=== PATIENT | female | born 1955 ===

== ENCOUNTER 2023-01-30 08:55 | Outpatient (AMB) | payer MEDICARE, SELFPAY ==
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
[2023-01-30 09:08] VITALS: BP 132/82; PULSE 89; RESP 14; O2SAT 97; BMI 23.1
== END 2023-01-30 10:18 | disposition home or self-care (01) ==
PROVIDERS: PCP Internal Medicine; Visit Provider Internal Medicine
DX: M79.671 Pain in right foot (principal); G89.29 Other chronic pain; M53.3 Sacrococcygeal disorders, not elsewhere classified
CPT/HCPCS: 64450; 76942; 99204

== ENCOUNTER → 2023-01-30 08:55 | Outpatient (BNVA) | payer MEDICARE, SELFPAY | PROVIDERS: PCP Internal Medicine; Visit Provider Internal Medicine | DX: M79.672 Pain in left foot (principal); M53.3 Sacrococcygeal disorders, not elsewhere classified; G89.29 Other chronic pain | CPT/HCPCS: 64450 ==

== ENCOUNTER 2023-03-13 10:15 | Outpatient (AMB) | payer MEDICARE, SELFPAY ==
--- NOTE | 2023-03-13 10:16 | MHC.OFFVIS ---
Intake Vital Signs 03/13/23 10:18 Height 5 ft 6 in Weight 144 lb BMI 23.2 Blood Pressure Location Lt brachial Position Sitting Respiration 12 Pulse 87 Pulse Source Pulse Oximeter Intake Visit Reasons: MRI review/SIJ inj denial/confirmed Allergies novacaine Adverse Reaction (Severe, Uncoded 01/30/23 09:10) tachycardia HPI MRI review/SIJ inj denial/confirmed HPI Details 67-year-old female who presents today to the office for a review of MRI scan result. Her SI joint injection was declined by her insurance. She has difficulty doing physical therapy and home exercises due to pain. She had an MRI scan completed at [facility]. She reports shooting mid-back pain that radiates to the sides. She takes gabapentin every other day, which helps to take the edge off. She tried marijuana but did not tolerate it well. She is not taking meloxicam. The patient reports % relief following the procedure. She states that her foot pain improved for about three days, but then it started worsening. She had mild numbness in her buttock two days after the procedure, which eventually resolved. Past procedure: 01/30/2023: Left posterior tibial nerve block, ultrasound guided: % relief for three days. [facility] Medical History (Updated 03/14/23 @ 11:55 by Blu Andre MD) Chronic pain in left foot Chronic bilateral low back pain without sciatica Review of Systems Const All systems reviewed & are unremarkable except as noted in HPI and below Physical Exam Vital Signs: Last Vital Signs Pulse 87 03/13/23 10:18 Resp 12 03/13/23 10:18 BMI result Body Mass Index 23.2 General: Appears afebrile. Alert and oriented. Mood and affect appropriate. Follows and participates in conversation appropriately. Respiratory effort is unlabored. Able to transition from sit to stand unassisted. Ambulates with bilaterally normal heel strike and toe off. Results Reviewed Results Reviewed: 05/21/22: MRI scan LUMBAR SPINE WO CONTRAST. Assessment & Plan Assessment & Plan (1) Sacroiliac joint dysfunction: Code(s): M53.3 - Sacrococcygeal disorders, not elsewhere classified (2) Chronic pain in left foot: Comment: history of Sahu neuroma resection Code(s): M79.672 - Pain in left foot; G89.29 - Other chronic pain (3) Vertebrogenic low back pain: Code(s): M54.51 - Vertebrogenic low back pain Plan I discussed the BVN ablation with her for L5-S1 levels, based on modic changes on MRI and pain and exacerbation with lumbar flexion indicating a discogenic source. I still need to review her MRI images so she will drop off the disk when it is convenient for her. I will prescribe her a 1 time dose of tramadol 25-50 mg 30 tablets to last her until we can get her scheduled for the procedure. Given her excellent diagnostic response to posterior tibial nerve block for neuropathic foot pain. We discussed a trial of temporary posterior tibial nerve stimulation to follow after the intercept procedure. I discussed post procedures in detail, including the specifics of the procedures as well as risks and benefits. Scribed for Dr. Andre by Dale Roach, medical office assistant, on 03/13/2023. I, Dr. Andre, have personally reviewed and agree with the information entered by the scribe. Medications: New tramadol 50 mg PO DAILY 30 tabs 0RF Coding Level of Care Code Est Pt Level 4 (71235) Diagnoses Sacroiliac joint dysfunction M53.3 Chronic pain in left foot M79.672; G89.29 Vertebrogenic low back pain M54.51
[2023-03-13 10:18] VITALS: PULSE 87; RESP 12; BMI 23.2
== END 2023-03-13 10:57 | disposition home or self-care (01) ==
PROVIDERS: PCP Internal Medicine; Visit Provider Internal Medicine
DX: G89.29 Other chronic pain (principal); M53.3 Sacrococcygeal disorders, not elsewhere classified; M79.672 Pain in left foot; M54.51 Vertebrogenic low back pain
CPT/HCPCS: 99214

== ENCOUNTER → 2023-03-13 10:15 | Outpatient (BNVA) | payer MEDICARE, SELFPAY | PROVIDERS: PCP Internal Medicine; Visit Provider Internal Medicine | DX: M53.3 Sacrococcygeal disorders, not elsewhere classified (principal); M79.672 Pain in left foot; M54.51 Vertebrogenic low back pain; G89.29 Other chronic pain | CPT/HCPCS: 99212 ==

== ENCOUNTER 2023-06-30 08:57 | Outpatient (AMB) | payer MEDICARE, SELFPAY ==
--- NOTE | 2023-06-30 08:57 | MHC.OFFVIS ---
Intake Intake Visit Reasons: MRI Review and Intracept Discussion Allergies novacaine Adverse Reaction (Severe, Uncoded 01/30/23 09:10) tachycardia HPI MRI Review and Intracept Discussion HPI Details 67-year-old female who presents today via telehealth visit for a review of the MRI scan result and discussion of the intracept procedure. She reports jolting pain in her midback and lower back regions. She reports numbness going down to her buttock region. We reviewed the MRI scan result with the patient prior to discussing the treatment option. She had cortisone injections in the past with no relief. She is unable to get out of bed. It is affecting her daily activities. She was not able to tolerate the physical therapy due to pain. She had not received any facet nerve blocks or injections in the past.? 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 She had surgery on the right side. Since then, she has had multiple rounds of injections and treatments for her residual pain without much relief. She reports pain in her other foot that started recently. She denies any accidents or trauma in the past. She is unable to wear a boot or shoes due to pain. Past procedure: 01/30/2023: Left posterior tibial nerve block, ultrasound guided: % relief for three days. [facility] Medical History (Updated 07/03/23 @ 12:03 by Blu Andre MD) Chronic pain in left foot Chronic bilateral low back pain without sciatica Review of Systems Const All systems reviewed & are unremarkable except as noted in HPI and below Results Reviewed Results Reviewed: 05/21/22: MRI scan LUMBAR SPINE WO CONTRAST. Assessment & Plan Assessment & Plan (1) Vertebrogenic low back pain: Code(s): M54.51 - Vertebrogenic low back pain (2) Chronic pain in left foot: Comment: history of Sahu neuroma resection Code(s): M79.672 - Pain in left foot; G89.29 - Other chronic pain (3) Lumbar radiculitis: Code(s): M54.16 - Radiculopathy, lumbar region Plan We will schedule her for a left L5 diagnostic nerve root block with lidocaine only to rule out nerve compression as a source of her left foot pain. Discussed the risks and benefits of the procedure with the patient in detail. All questions were answered. The patient is on board with the plan. We had a long discussion about the intracept procedure, and I went to see her MRI details. She would like to try the diagnostic nerve block first before proceeding with the intracept. I also discussed surgical cage placement. She has previously been seen by Dr. Eddy, who deemed her nonsurgical, especially in the absence of any significant radicular symptoms. Justification for interventional therapy: Patient with average pain > 6/10 Patient has exhausted conservative therapy Patient unable to tolerate physical therapy due to pain Scribed for Dr. Andre by Dale Roach, medical certification specialist, on 06/30/2023. I, Dr. Andre, have personally reviewed and agree with the information entered by the scribe. Telehealth Telehealth Location of provider rendering services: practice address Location of patient: address on file Patient Identification confirmed using: Name, : Yes Telehealth method: video Patient verbally consented to treatment: Yes Patient verbally consented to billing insurance company: Yes Patient informed of any privacy concerns related to visit: Yes Minutes spent on Phone/Video with Pt.: 27 Coding Level of Care Code Tele Est Pt Level 4 (61109) Diagnoses Vertebrogenic low back pain M54.51 Chronic pain in left foot M79.672; G89.29 Lumbar radiculitis M54.16
== END 2023-06-30 08:58 | disposition home or self-care (01) ==
LOC: HO.PMC 08:57
PROVIDERS: PCP Internal Medicine; Visit Provider Internal Medicine
DX: M54.51 Vertebrogenic low back pain (principal); M79.672 Pain in left foot; G89.29 Other chronic pain; M54.16 Radiculopathy, lumbar region
CPT/HCPCS: 99214

== ENCOUNTER → 2023-06-30 08:57 | Outpatient (BNVA) | payer MEDICARE, SELFPAY | PROVIDERS: PCP Internal Medicine; Visit Provider Internal Medicine ==

== ENCOUNTER → 2023-10-18 09:14 | Day surgery (SDC) | payer MEDICARE, SELFPAY ==
--- NOTE | 2023-10-17 10:16 | HO.ANESPROP2 ---
HPI - Anesthesia Eval Consult details Narrative: 68yo F for Intracept RFA (L5 and S1 Basivertebral Nerve Ablation) PMFSH Active Problems Active Problems: All Active Problems Lumbar radiculitis (Acute) Vertebrogenic low back pain (Acute) Sacroiliac joint dysfunction (Acute) Chronic pain in left foot (Acute) Past Medical History Medical History (Updated 07/03/23 @ 12:03 by Blu Andre MD) Chronic pain in left foot Chronic bilateral low back pain without sciatica Meds Allergies Allergy/AdvReac Type Severity Reaction Status Date / Time novacaine AdvReac Severe tachycardia Uncoded 01/30/23 09:10 Home Medications ?Medication ?Instructions ?Recorded ?Confirmed ?Last Taken ?Type gabapentin 300 mg capsule 300 mg PO Q12H 01/30/23 01/30/23 Unknown History meloxicam 15 mg tablet 15 mg PO DAILY PRN pain 01/30/23 01/30/23 Unknown History Exam Height,Weight and Vital Signs: Weight 67.585 kg Assessment and Plan Assessment Anesthesia Assessment: Chart Reviewed
== END ==
PROVIDERS: PCP Internal Medicine; Visit Provider Internal Medicine
DX: M54.51 Vertebrogenic low back pain (principal); Z53.8 Procedure and treatment not carried out for other reasons
CPT/HCPCS: J1100; J2250; J2704; J3010

== ENCOUNTER 2023-10-25 05:48 | Day surgery (SDC) | payer MEDICARE, SELFPAY ==
--- NOTE | 2023-10-24 09:13 | HO.ANESPROP2 ---
HPI - Anesthesia Eval Consult details Narrative: 68yo F for L5 and S1 Basivertebral Nerve Ablation PMFSH Active Problems Active Problems: All Active Problems Lumbar radiculitis (Acute) Vertebrogenic low back pain (Acute) Sacroiliac joint dysfunction (Acute) Chronic pain in left foot (Acute) Past Medical History Medical History Chronic pain in left foot Chronic bilateral low back pain without sciatica Social History Social History Patient Tobacco Use Status: Current everyday Tobacco user Cigarettes Per Day: 10 Meds Allergies Allergy/AdvReac Type Severity Reaction Status Date / Time novacaine AdvReac Severe tachycardia Uncoded 11/01/23 07:59 Home Medications ?Medication ?Instructions ?Recorded ?Confirmed ?Last Taken ?Type meloxicam 15 mg tablet 15 mg PO DAILY PRN pain 01/30/23 11/01/23 Unknown History Assessment and Plan Assessment Anesthesia Assessment: Chart Reviewed
[2023-10-25] VITALS (16 sets, daily range): BP systolic 112–135; BP diastolic 52–79; PULSE 61–74; RESP 16–18; TEMP 36.1–36.7; O2SAT 95–100; BMI 21.7
--- NOTE | ~2023-10-25 | FL_ITS ---
EXAMINATION: XR FLUOROSCOPY WITH IMAGES CLINICAL INFORMATION: L5-S1 basivertebral nerve ablation; additional notes/special instructions OR 5. COMPARISON: None available. TECHNIQUE: Fluoroscopy Supervised By: Dr. Blu Andre. Fluoroscopy Time: 3 minutes, 57.5 seconds. Cumulative Dose: 132.66 mGy. DAP: 8.9549 Gycm2. Images: 6. FINDINGS: Intraoperative fluoroscopy and spot films were performed during a procedure in the OR. Ablation probes are seen overlying L5 and S1 bilaterally. Please correlate with Dr. Blu Andre's report for complete details. FL/FL guidance in OR IMPRESSION: Intraoperative fluoroscopy and spot films were obtained. Please see Dr. Blu Andre's report for complete details.
[2023-10-25] MEDS: Lactated Ringers 1,000 ML 100 ML IVCONT (06:46)
--- NOTE | 2023-10-25 07:18 | P.CONAN_ITS ---
[facility] Active Problems Active Problems: All Active Problems Lumbar radiculitis (Acute) Vertebrogenic low back pain (Acute) Sacroiliac joint dysfunction (Acute) Chronic pain in left foot (Acute) Past Medical History Medical History Chronic pain in left foot Chronic bilateral low back pain without sciatica Functional capacity: independent ambulation Patient : No Family History Family history of problems with anesthesia: No Surgical History History of Problems with Anesthesia: No Social History Social History Patient Tobacco Use Status: Current everyday Tobacco user Cigarettes Per Day: 10 Meds Allergies Allergy/AdvReac Type Severity Reaction Status Date / Time novacaine AdvReac Severe tachycardia Uncoded 01/30/23 09:10 Active Medications: Current Medications Lactated Ringer's (Lr) 1,000 mls @ 100 mls/hr IVCONT .Q10H PRIYA Last Admin: 10/25/23 06:46 Dose: 100 mls/hr Home Medications ?Medication ?Instructions ?Recorded ?Confirmed ?Last Taken ?Type gabapentin 300 mg capsule 300 mg PO Q12H 01/30/23 01/30/23 Unknown History meloxicam 15 mg tablet 15 mg PO DAILY PRN pain 01/30/23 01/30/23 Unknown History Exam Height,Weight and Vital Signs: Height 5 ft 6 in Weight 60.895 kg Last Vital Signs Temp 98.1 F 10/25/23 06:36 Pulse 65 10/25/23 06:36 Resp 18 10/25/23 06:36 BP 129/69 10/25/23 06:36 Pulse Ox 98 10/25/23 06:36 O2 Del Method Room Air 10/25/23 06:36 Airway Mallampati Class: II TM Dist: >3cm Neck ROM: Full Partial: Upper Heart: RRR Lungs: CTA Assessment and Plan Assessment Anesthesia Assessment: Anesthesia Plan Discussed and Smoking Cess. Discussed Final Anesthetic Review Family History of Problems with Anesthesia: No History of Problems with Anesthesia: No NPO: Yes ASA Class: II Final Preanesthetic Review: Meds/Allgs Chart Reviewed, Consent Obtained/Reviewed and Anes Risks/Benef Reviewed Patient Risk: Low Procedure Risk: Low Anesthetic Plan Anesthetic Plan: GA Disposition: Standard PACU
--- NOTE | 2023-10-25 07:31 | MHC.SHP ---
Pre-Procedural Eval Section A - 24 Hr Update-Section A only Date of Service: 10/25/23 The patient is an INPATIENT: No Changes since office visit: Yes Patient answered all questions The patient has been examined within 24 hours of the surgical procedure. The History & Physical has been completed within 30 days and I have reviewed it.: No Section B - Complete if H&P > 30 days Chief Complaint: Vertebrogenic low back pain Relevant Family History (Specify if Yes): No Relevant Social History: None Present Medications: see Short Stay Collaborative assessment Medical History: No relevant PMH History of Previous Operations: No relevant previous surgery Allergies: Allergies Allergy/AdvReac Type Severity Reaction Status Date / Time novacaine AdvReac Severe tachycardia Uncoded 01/30/23 09:10 Review of Systems Sugical H&P ROS: Negative: Constitution, Cardiovascular and Respiratory Exam Surgical H&P Exam: Normal: HEENT, Normal: Heart and Normal: Lungs Plan Diagnosis/Plan: Unchanged I have reviewed the history and physical and performed a pertinent physical examination on my patient. No changes have occurred unless specified. Proceed with L4, L5, S1 BVN ablation Time Spent With Patient Time: Total time managing care of this patient today ____ minutes.
--- NOTE | 2023-10-25 10:30 | P.BOP_ITS ---
Brief Operative Note Date of Service: 10/25/23 Pre-op diagnosis: Vertebrogenic low back pain Post-op diagnosis: same Procedure: Basivertebral nerve ablation L4, L5, S1 Surgeon: Blu Andre MD Anesthesia: GETA Was an As[employer] used for this Procedure?: No Estimated blood loss (mL): 5 Pathology: none sent Condition: stable Disposition: PACU
--- NOTE | 2023-10-25 10:33 | P.OP_ITS ---
Operative Note Operative Note Date of Service: 10/25/23 Narrative: Basivertebral nerve (BVN) ablation ? Intracept Procedure L4, L5, S1 Procedure Time Out: Patient ID confirmed, correct procedure to be performed, correct site and/or side for procedure as per marked location and correct medication(s), including antibiotic to be used for the procedure. Description of Procedure: After receiving anesthesia in the supine position, the patient was placed prone on the operating room table and all pressure points were appropriately padded. The back was sterilely prepped and draped. The C-arm was sterilely draped and moved into position to visualize the S1 vertebral body in the AP and lateral plane. The C-arm was rotated to a Damon view to square off the superior endplate at S1. The C-arm was then rotated to the right approximately 15-20 degrees for an approach to the right S1 pedicle. The skin entry point was identified and infiltrated with 1% lidocaine using a 25-gauge 1- 1/2 inch needle. A 22-gauge 5-inch spinal needle was used to anesthetize the t rack to the pedicle and periosteum and confirm the introducer cannula trajectory. A skin incision was made with 15 scalpel blade. The introducer cannula with bevel tip was then introduced through the skin, subcutaneous tissue and paraspinal muscle until bony contact was made. The position was checked in the AP and lateral plane. Using a mallet, the trocar was then advanced thru the pedicle to the posterior aspect of the vertebral body using a combination of AP and lateral views to ensure appropriate traversing of the pedicle and no breaching of the pedicle medially. Once the trocar was in the posterior aspect of the S1 vertebral body, the trocar was removed from the cannula and the curved cannula assembly with the nitinol J-stylet was inserted. The spin wheel was rotated counterclockwise permitting excursion of the J-stylet. The curved cannula assembly was then advanced using a mallet in 1-2 mm increments. The J- stylet was observed to traverse the vertebral body in the AP and lateral views. The J-stylet was removed and replaced with the straight stylet to reach the BVN target. Target was reached when the tip of the stylet was 50% anterior of the posterior wall of the S1 in the lateral view (midway between the superior and inferior endplates) and it crossed the midline of the S1 spinous process in the AP view. The stylet was then removed. The bipolar radiofrequency (RF) probe was connected to the generator and then inserted into the introducer cannula in its ablation position. The spin wheel was rotated clockwise to retract the PEEK sleeve to expose the proximal electrode on the radiofrequency probe. The BVN was then ablated using [employer]?s targeted RFG algorithm. While the ablation was occurring at S1, the C-arm was moved to visualize the target at the superolateral aspect of the L5 vertebral body. The C-arm was rotated to square off the superior endplate at L5 and rotated left to obtain an oblique view. The superolateral left L5 pedicle was identified for access. The same process was utilized to place the tip of the cannular 50% anterior of the posterior wall of the L5 in the lateral view (midway between the superior and inferior endplates) and it crossed the midline of the L5 spinous process in the AP view. The stylet was then removed. The bipolar radiofrequency (RF) probe was removed from the previous vertebral body, the tip cleaned and was inserted into the introducer cannula in its ablation position. The spin wheel was rotated clockwise to retract the PEEK sleeve to expose the proximal electrode on the radiofrequency probe. The BVN was then ablated using [employer]?s targeted RFG algorithm. While the ablation was occurring at L5, the C-arm was moved to visualize the target at the superolateral aspect of the L4 vertebral body using the approach similar to the L5 vertebral body. The C-arm was rotated to square off the superior endplate at L4 and rotated approximately to the right to obtain an oblique view. The superolateral right L4 pedicle was identified, and the skin entry point identified. Same steps were followed as for L5. Target was reached when the tip of the stylet was 50% anterior of the posterior wall of the L4 in the lateral view (midway between the superior and inferior endplates) and it crossed the midline of the L4 spinous process in the AP view. The stylet was then removed. The bipolar radiofrequency (RF) probe was removed from the previous vertebral body, the tip cleaned and was inserted into the introducer cannula in its ablation position. The spin wheel was rotated clockwise to retract the PEEK sleeve to expose the proximal electrode on the radiofrequency probe. The BVN was then ablated using [employer]?s targeted RFG algorithm. With all ablations completed, the instruments were removed from the vertebral bodies. The surgical wounds were closed with 2-0 silk sutures and a sterile dressing was applied. The patient was returned to the supine position and the anesthesia reversed. The patient tolerated the procedure well and was brought to the recovery room. After waking up from anesthesia, the patient endorsed 5/5 bilateral lower extremity strength and was able to ambulate without problems. She did report a new right groin pain with right hip flexion that was not present before the procedure. There was no tenderness to palpation at the site. Neurologic exam was reassuring. She denied any numbness, tingling or burning sensation down her lower extremities. We asked her to call us on Monday to give us an update on this new symptom; plan to manage expectantly for now. The patient was provided post-op and follow up instructions. Complications: None Estimate Blood Loss: 10 mL
[2023-10-25] MEDS: HYDROmorphone HCl 0.5 MG/0.5 ML SYRINGE 0.25 MG IVPUSH (10:46)
[2023-10-25 10:47] LABS: MRSA Nasal PCR NEGATIVE (Negative); SA Nasal PCR NEGATIVE (Negative)
[2023-10-25] MEDS: Acetaminophen 1,000 MG/100 ML PIGGYBACK 400 MG IV (10:53)
[2023-10-25] MEDS: fentaNYL citrate/PF 100 MCG/2 ML VIAL 25 MCG IVPUSH ×2 (11:15→11:29)
--- NOTE | 2023-10-25 16:23 | HO.POSTANES ---
Post Anesthesia Evaluation Post Anesthesia Evaluation Date of Service: 10/25/23 Vital Signs: Vital Signs Temp Pulse Resp BP Pulse Ox O2 Del Method 10/25/23 13:10 73 16 131/74 97 Room Air 10/25/23 12:45 67 16 124/72 97 Room Air 10/25/23 12:30 72 16 118/70 97 Room Air 10/25/23 12:15 68 16 124/77 97 Room Air 10/25/23 12:00 68 16 114/72 97 Room Air 10/25/23 11:45 68 16 116/75 97 Room Air 10/25/23 11:34 65 16 116/66 99 Room Air 10/25/23 11:29 63 16 118/67 100 Room Air 10/25/23 11:29 16 10/25/23 11:20 61 16 112/70 99 Room Air 10/25/23 11:15 71 16 117/52 L 97 Room Air 10/25/23 11:15 16 10/25/23 11:00 74 16 127/78 96 Room Air 10/25/23 10:56 71 16 125/72 96 Room Air 10/25/23 10:51 67 16 122/73 96 Room Air 10/25/23 10:46 70 16 125/73 96 Room Air 10/25/23 10:29 97 F 74 16 135/79 95 Room Air 10/25/23 06:36 98.1 F 65 18 129/69 98 Room Air Anesthesia: General Endotracheal-GETA Mental Status: Awake Pain Control: Satisfactory Nausea/Vomiting: None Hydration: Adequate Anesthesia-Related Issues: No Anes. Related Issues
== END 2023-10-25 13:45 | disposition home or self-care (01) ==
PROVIDERS: Registered Nurse Emergency; PCP Internal Medicine; Visit Provider Internal Medicine
PROC: (CPT 64628; principal; 2023-10-25 07:30)
DX: M54.51 Vertebrogenic low back pain (principal); G89.29 Other chronic pain; M79.672 Pain in left foot; M54.16 Radiculopathy, lumbar region; Z79.899 Other long term (current) drug therapy; Z88.4 Allergy status to anesthetic agent; Z98.890 Other specified postprocedural states; F17.210 Nicotine dependence, cigarettes, uncomplicated
CPT/HCPCS: 64628; 64629; 87640; 87641; C1889; J0131; J0690; J1100; J1170; J2250; J2405; J2704; J3010

== ENCOUNTER → 2023-10-25 05:48 | Outpatient (BNV) | payer MEDICARE, SELFPAY | PROVIDERS: PCP Internal Medicine; Visit Provider Internal Medicine | DX: M54.51 Vertebrogenic low back pain (principal) | CPT/HCPCS: 64628; 64629 ==

== ENCOUNTER 2023-11-01 07:52 | Outpatient (AMB) | payer MEDICARE, SELFPAY ==
--- NOTE | 2023-11-01 07:56 | MHC.OFFVIS ---
Vital Signs 11/01/23 07:58 Height 5 ft 6 in Weight 137 lb BMI 22.1 BP 128/84 Blood Pressure Location Lt brachial Position Sitting Respiration 14 Pulse 85 Pulse Source Pulse Oximeter Intake Visit Reasons: S/p L5-S1 BVN (Intracept) 10/25/23 Allergies novacaine Adverse Reaction (Severe, Uncoded 11/01/23 07:59) tachycardia Medication List - Last Reconciled 11/01/23 by Laurita Coelho LPN gabapentin 300 mg PO Q12H meloxicam 15 mg PO DAILY PRN HPI HPI S/p L5-S1 BVN (Intracept) 10/25/23: Details: 68-year-old female who presents to the office for status post L5-S1 basivertebral nerve ablation (Intracept) 10/25/23. The patient reports 100% relief following the procedure. She still continues to have tailbone pain and it hurts to sit in a sitting position. This pain started about 2 weeks prior to her Intracept procedure. She is interested in a formal home exercise program to relieve the pain. 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 She states she is scheduled to see her surface plate finisher to do an ultrasound of her adnexa. Her right groin pain that started postoperatively in the PACU is significantly better. She is going on a vacation to [place] on January 08, 2024, and wants to know if she can take meloxicam or gabapentin for the pain relief and sleep. Past procedure: 10/25/2023: L5-S1 Basivertebral nerve ablation (Intracept) : 100% relief 01/30/2023: Left posterior tibial nerve block, ultrasound guided: 80 % relief for 3 days. [facility] Medical History Chronic pain in left foot Chronic bilateral low back pain without sciatica Social History Patient Tobacco Use Status: Current everyday Tobacco user Cigarettes Per Day: 10 Review of Systems Const All systems reviewed & are unremarkable except as noted in HPI and below Physical Exam Vital Signs: Last Vital Signs Pulse 85 11/01/23 07:58 Resp 14 11/01/23 07:58 BP 128/84 11/01/23 07:58 BMI result Body Mass Index 22.1 General: Appears afebrile. Alert and oriented. Mood and affect appropriate. Follows and participates in conversation appropriately. Respiratory effort is unlabored. Able to transition from sit to stand unassisted. Sutures removed. Patient is cleared to shower. Results Reviewed Results Reviewed: No imaging is available for review Assessment & Plan Assessment & Plan (1) Vertebrogenic low back pain: Code(s): M54.51 - Vertebrogenic low back pain Category: Medical (2) Chronic pain in left foot: Comment: history of [place] neuroma resection Code(s): M79.672 - Pain in left foot; G89.29 - Other chronic pain Category: Medical Plan Her vertebrogenic low back pain has resolved following basivertebral nerve ablation. She is very pleased with that. Discussed trying coccyx pillow and coccyx exercises for her tailbone pain. For her right foot pain, I recommended switching gabapentin to a trial of pregabalin as well as adding duloxetine 1 week later. We will see how she does with these over the next 2 months and if she does not find significant relief, then we will trial a temporary posterior tibial nerve stimulator. Scribed for Dr. Andre by Faisal Grant, medical accounts receivable specialist, on 11/01/2023. I, Dr. Andre, have personally reviewed and agree with the information entered by the scribe. Medications: New pregabalin 75 mg PO BEDTIME 30 caps 0RF duloxetine 30 mg PO DAILY 30 caps 0RF Coding Level of Care Code Est Pt Level 4 (54228) Diagnoses Vertebrogenic low back pain M54.51 Chronic pain in left foot M79.672; G89.29
[2023-11-01 07:58] VITALS: BP 128/84; PULSE 85; RESP 14; BMI 22.1
== END 2023-11-01 08:45 | disposition home or self-care (01) ==
PROVIDERS: PCP Internal Medicine; Visit Provider Internal Medicine
DX: M54.51 Vertebrogenic low back pain (principal); M79.672 Pain in left foot; G89.29 Other chronic pain
CPT/HCPCS: 99024

== ENCOUNTER → 2023-11-01 07:52 | Outpatient (BNVA) | payer MEDICARE, SELFPAY | PROVIDERS: PCP Internal Medicine; Visit Provider Internal Medicine | DX: M54.51 Vertebrogenic low back pain (principal); G89.29 Other chronic pain; M79.672 Pain in left foot; Z98.890 Other specified postprocedural states | CPT/HCPCS: 99212 ==